=== PATIENT | male | born 1995 | race Caucasian/White ===

== ENCOUNTER 2018-10-02 08:37 | Emergency (ER) | payer OTHER ==
[~2018-10-02] VITALS: Ht 177.8 cm; Wt 84.1 kg
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
[2018-10-02] MEDS ORDERED: ONDANSETRON 2MG/ML, 2ML ONE (09:27)
[2018-10-02] MEDS ORDERED: MORPHINE SULFATE 4 MG/ML, 1ML ONE (09:27)
[2018-10-02] MEDS ORDERED: ONDANSETRON 2MG/ML, 2ML IVPush ONE (09:30)
[2018-10-02] MEDS ORDERED: SODIUM CHLORIDE FLUSH 10ML SYR IVF ONE (09:30)
[2018-10-02] MEDS ORDERED: MORPHINE SULFATE 4 MG/ML, 1ML IVPush PRN (09:30)
--- NOTE | 2018-10-02 09:34 | NUR ---
CT IS TAKING PT.
--- NOTE | 2018-10-02 09:58 | NUR ---
Pt back from imaging, states pain is 1/10, denies other needs. POC discussed.
--- NOTE | 2018-10-02 10:44 | NUR ---
IMAGING ALL CAME BACK NEG, I REPORTED RESULTS TO NICOLETTE. I REQUESTED TO REMOVE PT C COLLAR, NICOLETTE SAID WE COULD REMOVE IT.
--- NOTE | 2018-10-02 10:47 | NUR ---
Patient is resting comfortably in bed. Vital Signs within normal limits. Pt reports no pain at this time.
[2018-10-02 11:35] VITALS: BP 120/70
--- NOTE | 2018-10-02 11:36 | NUR ---
Patient is resting comfortably in bed. Vital Signs within normal limits. Pt states the meds "really helped my pain, I'm at about a 2". NAD. Call light in place.
--- NOTE | 2018-10-02 11:47 | NUR ---
Patient given discharge instructions and they have confirmed that they understand the instructions. Patient ambulatory with steady gait. Pt in stable condition and appropriate for dc. VSS.
== END 2018-10-02 11:49 | disposition home or self-care (01) ==
LOC: ED 10:37
DX: S16.1XXA Strain of muscle, fascia and tendon at neck level, initial encounter (principal); S39.012A Strain of muscle, fascia and tendon of lower back, initial encounter; S76.012A Strain of muscle, fascia and tendon of left hip, initial encounter; S29.012A Strain of muscle and tendon of back wall of thorax, initial encounter; S80.01XA Contusion of right knee, initial encounter; V49.49XA Driver injured in collision with other motor vehicles in traffic accident, initial encounter; Y93.89 Activity, other specified; Y92.89 Other specified places as the place of occurrence of the external cause; Y99.8 Other external cause status
CPT/HCPCS: 70450; 72072; 72110; 72125; 73502; 73564; 96374; 96375; 99284; J2270; J2405

== ENCOUNTER 2019-09-21 13:31 | Emergency (ER) | payer OTHER ==
[~2019-09-21] VITALS: Ht 180.3 cm; Wt 68.0 kg
[2019-09-21] MEDS ORDERED: KETOROLAC 30 MG/1 ML ONE (13:50)
[2019-09-21] MEDS ORDERED: MORPHINE SULFATE 4 MG/ML, 1ML ONE ×2 (13:50→14:45)
[2019-09-21] MEDS ORDERED: SILVER SULF. CRM 1% , 25GM TP ONE (14:00)
[2019-09-21] MEDS ORDERED: KETOROLAC 30 MG/1 ML IM ONE (14:00)
[2019-09-21] MEDS ORDERED: KETOROLAC 30 MG/1 ML IVPush ONE (14:00)
[2019-09-21] MEDS ORDERED: OXYcodone/APAP 5/325MG TABLET PO ONE (14:00)
[2019-09-21] MEDS ORDERED: PLEASE ENTER HEIGHT AND WEIGHT MC SCH (14:00)
--- NOTE | 2019-09-21 14:51 | NUR ---
BREAK RN. PT REMEDICATED FOR PAIN PER ORDERS. WILL DRESS WD AFTER PAIN LEVEL DECREASED. PT ON MONITORS, VSS.
[2019-09-21] MEDS ORDERED: MORPHINE SULFATE 4 MG/ML, 1ML IVPush PRN (15:00)
[2019-09-21] MEDS ORDERED: DIPH,PERTUSS(ACELL),TET VAC/PF 0.5 ML IM-VACC ONE (15:00)
[2019-09-21 15:34] VITALS: BP 142/54
== END 2019-09-21 15:35 | disposition home or self-care (01) ==
LOC: ED 15:30
DX: T22.612A Corrosion of second degree of left forearm, initial encounter (principal); T22.611A Corrosion of second degree of right forearm, initial encounter; T21.62XA Corrosion of second degree of abdominal wall, initial encounter; T32.0 Corrosions involving less than 10% of body surface; Y93.89 Activity, other specified; Y92.89 Other specified places as the place of occurrence of the external cause; Y99.8 Other external cause status
CPT/HCPCS: 96374; 96375; 99284; J1885; J2270

== ENCOUNTER 2020-01-25 11:17 | Emergency (ER) | payer OTHER ==
[~2020-01-25] VITALS: Ht 180.3 cm; Wt 89.7 kg
[2020-01-25] MEDS ORDERED: KETOROLAC 30 MG/1 ML IVPush ONE (12:00)
[2020-01-25] MEDS ORDERED: SODIUM CHLORIDE FLUSH 10ML SYR IVF ONE ×2 (12:00→13:00)
[2020-01-25] MEDS ORDERED: ONDANSETRON 2MG/ML, 2ML IVPush ONE (12:00)
--- NOTE | 2020-01-25 12:13 | NUR ---
PT PRESENTS TO ED WITH C/O LEFT SIDED FLANK PAIN RADIATING STRAIGHT THROUGH ABDOMEN. PT STATES THIS PAIN STARTED THIS MORNING, PT HAD ONE BOUT EMESIS AND ONE EPISODE DIARRHEA THIS AM. PT IS A&O, RESPS EVEN AND UNLABORED, SPEAKING IN FULL SENTENCES WITHOUT DIFFICULTY. PT SEEN AND EXAMINED BY HENRY SERRANO PLACED AND PT MEDICATED BY ALEX DELGADO. PT IN CT AT THIS TIME.
--- NOTE | 2020-01-25 12:16 | NUR ---
URINE SENT TO LAB.
--- NOTE | 2020-01-25 12:20 | NUR ---
PT BACK FROM CT, NADN AT RETURN.
[2020-01-25 12:21] LABS: BASOPHILS % (AUTO) 1 % (0-1); EOSINOPHILS % (AUTO) 1 % (1-7); LYMPHOCYTES % (AUTO) 12 % (22-44); MEAN CORPUSCULAR HEMOGLOBIN 29.9 pg (27.5-34.5); MEAN CORPUSCULAR HGB CONC 34.2 g/dL (33.2-36.2); MEAN PLATELET VOLUME 9.2 fL (7.4-10.4); MONOCYTES % (AUTO) 8 % (2-9); NEUTROPHILS % (AUTO) 79 % (42-75); PLATELET COUNT 292 x10^3/uL (130-400); RED BLOOD COUNT 5.89 x10^6/uL (4.38-5.82); RED CELL DISTRIBUTION WIDTH 13.5 % (9.4-14.8)
[2020-01-25 12:32] LABS: ALBUMIN 4.1 g/dL (3.4-5.0); ANION GAP 8 mmol/L (5-15); CALCIUM 9.5 mg/dL (8.5-10.1); CHLORIDE 113 mmol/L (98-107); CREATININE 1.41 mg/dL (0.7-1.3)
[2020-01-25] MEDS ORDERED: ONDANSETRON 2MG/ML, 2ML ONE (12:41)
[2020-01-25] MEDS ORDERED: KETOROLAC 30 MG/1 ML ONE (12:41)
[2020-01-25 12:43] LABS: MICROSCOPIC INDICATED
[2020-01-25 12:44] LABS: MD SCAN
--- NOTE | 2020-01-25 12:58 | NUR ---
imaging and labs reviewed by jorge berger, order received for daily and 1l ns.
[2020-01-25] MEDS ORDERED: SODIUM CHLORIDE 0.9% 1,000ML IVBOLUS ONE (13:00)
[2020-01-25] MEDS ORDERED: HYDROmorphone 1 MG/ML, 1ML INJ ONE ×2 (13:02→13:48)
[2020-01-25] MEDS: HYDROmorphone 2 MG/ML, 1ML IVPush PRN ×2 (13:10→13:51)
--- NOTE | 2020-01-25 13:35 | NUR ---
pt medicated per emar with dilaudid, states pain greatly improved. pt a&o, resps even and unlabored, nadn. bp and spo2 monitors in place. pt to be discharged once IVF complete.
--- NOTE | 2020-01-25 13:58 | NUR ---
this RN gave pt discharge paperwork and education, at that time, pt reports increase in flank/abd pain and requests second dose dilaudid. pt is a&o, resps even and unlabored, speech clear. MD Murillo notified, MD ham'jann RN to admin second dose prior to discharge. pt medicated per emar, tolerated well. bp and spo2 monitors remain in place.
[2020-01-25 14:50] VITALS: BP 142/82
--- NOTE | 2020-01-25 14:57 | NUR ---
pt reports pain resolved. pt a&o, resps even and unlabored. PIV dc'd with tip intact. pt given urine strainer, given dc instructions including urology follow up. pt instructed not to drive today. pt ambulatory to dc desk with steady gait, accompanied by girlfriend. klever at dc.
== END 2020-01-25 14:58 | disposition home or self-care (01) ==
LOC: ED 12:12
DX: N20.1 Calculus of ureter (principal); R11.2 Nausea with vomiting, unspecified; R19.7 Diarrhea, unspecified; R10.32 Left lower quadrant pain
CPT/HCPCS: 36415; 74176; 80048; 81001; 82040; 85025; 87086; 96361; 96374; 96375; 96376; 99285; J1170; J1885; J2405; J7030

== ENCOUNTER 2020-01-31 18:55 | Emergency (ER) | payer OTHER ==
[~2020-01-31] VITALS: Ht 180.3 cm; Wt 91.3 kg
[2020-01-31 18:58] VITALS: BP 124/73
--- NOTE | 2020-01-31 19:17 | NUR ---
24 YEAR OLD MALE TO ED FOR WORK CLEARANCE FOR CONGESTION AND COUGH. HE DENIES FEVER, CHILLS, OR BODY ACHES.
--- NOTE | 2020-01-31 20:23 | NUR ---
PATIENT'S CONTACT INFO: CELL: PLEASE CALL WITH ANY UPDATES OR RESULTS
== END 2020-01-31 20:27 | disposition home or self-care (01) ==
LOC: ED 20:20
DX: B34.9 Viral infection, unspecified (principal); R05 Cough; Z20.828 Contact with and (suspected) exposure to other viral communicable diseases
CPT/HCPCS: 36415; 87635; 99283